=== PATIENT | female | born 1965 | race Two or more races ===

== ENCOUNTER 2020-01-07 11:41 | Outpatient (CLI) | payer OTHER ==
[~2020-01-07 11:41] MED LIST: BENTYL10 MG/ML; PROTONIX20 MG; SYNTHROID50 MCG
== END 2020-01-07 11:45 | disposition home or self-care (01) ==
LOC: SONOGRAMA 11:41
PROVIDERS: ATTEND Pathology Anatomic Pathology & Clinical Pathology
DX: E04.1 Nontoxic single thyroid nodule (principal)

== ENCOUNTER 2021-06-23 07:21 | Outpatient (CLI) | payer OTHER | END 2021-06-23 07:22 | disposition home or self-care (01) | LOC: NUCLEAR 07:21 | PROVIDERS: ATTEND Internal Medicine | DX: I25.10 Atherosclerotic heart disease of native coronary artery without angina pectoris (principal) | CPT/HCPCS: 78452; A9500 ==